=== PATIENT | male | born 2000 | race Caucasian/White ===

== ENCOUNTER 2024-08-24 22:52 | Emergency (ER) | payer MEDICAID ==
[~2024-08-24] VITALS: Ht 188 cm; Wt 120.0 kg
[2024-08-25] MEDS: BUPIVAcaine 0.5% W/EPI /PF 10ml vial IJ STA (00:27)
[2024-08-25 01:42] VITALS: BP 125/77; PULSE 88; RESP 14; TEMP 97.8; O2SAT 99
== END 2024-08-25 01:49 | disposition home or self-care (01) ==
LOC: ER 22:53
DX: S61.213A Laceration without foreign body of left middle finger without damage to nail, initial encounter (principal); Z88.0 Allergy status to penicillin; W26.8XXA Contact with other sharp object(s), not elsewhere classified, initial encounter; Y93.89 Activity, other specified; Y92.89 Other specified places as the place of occurrence of the external cause; Y99.8 Other external cause status
CPT/HCPCS: 11730; 73140; 99284; A6258; 99283; A6449